=== PATIENT | male | born 1950 | race Caucasian/White ===

== ENCOUNTER 2017-01-09 06:41 | Emergency (ER) | payer OTHER | END 2017-01-09 09:05 | disposition home or self-care (01) | LOC: ER 06:41 | DX: R31.9 Hematuria, unspecified (principal); R30.0 Dysuria; I25.2 Old myocardial infarction; E11.9 Type 2 diabetes mellitus without complications; I10 Essential (primary) hypertension; Z88.1 Allergy status to other antibiotic agents; Z88.5 Allergy status to narcotic agent; Z88.8 Allergy status to other drugs, medicaments and biological substances; Z85.46 Personal history of malignant neoplasm of prostate; Z79.4 Long term (current) use of insulin | CPT/HCPCS: 36415; 96372; J0696 ==

== ENCOUNTER 2017-01-18 23:43 | Emergency (ER) | payer OTHER | END 2017-01-19 04:28 | disposition home or self-care (01) | LOC: ER 23:43 | DX: R31.0 Gross hematuria (principal); I25.2 Old myocardial infarction; E11.9 Type 2 diabetes mellitus without complications; I10 Essential (primary) hypertension; Z79.02 Long term (current) use of antithrombotics/antiplatelets; Z79.4 Long term (current) use of insulin; Z79.899 Other long term (current) drug therapy; Z88.1 Allergy status to other antibiotic agents; Z88.5 Allergy status to narcotic agent; Z88.6 Allergy status to analgesic agent; Z95.5 Presence of coronary angioplasty implant and graft | CPT/HCPCS: 36415; 51702; 96372 ==

== ENCOUNTER 2017-02-15 09:12 | Emergency (ER) | payer OTHER | END 2017-02-15 12:07 | disposition home or self-care (01) | LOC: ER 09:12 | DX: N41.1 Chronic prostatitis (principal); Z79.899 Other long term (current) drug therapy; Z79.4 Long term (current) use of insulin | CPT/HCPCS: 36415; 96361; 96365; 96375; J0696 ==